=== PATIENT | male | born 1985 | race Caucasian/White ===

== ENCOUNTER 2019-12-01 00:35 | Emergency (ER) | payer OTHER, SELFPAY ==
--- OUTSIDE RECORDS SUMMARY | 2019-12-01 00:38 | XMS REPORT | Clinical Summary ---
:1985 Author Organization [facility] Address [address] [place] [address] Care Team Providers Name Role Phone Asked, No Pcp Primary Care Provider Unavailable Allergies No Known Allergies Medications Medication Sig Dispensed Refills Start Date End Date Status citalopram (CeleXA) Take 1 tablet (20 14 tablet 0 07/18/2019 0 08/17/2019 20 MG tablet mg total) by mouth daily for 30 days. QUEtiapine Take 1 tablet (50 14 tablet 0 07/18/2019 08/17/2019 (SEROqueL) 50 MG mg total) by tablet mouth nightly for 30 days. Active Problems No known active problems Encounters Date Type Specialty Care Team Description 07/14/2019 - Emergency Emergency Medicine Fay Vela (Primary Dx); 07/18/2019 MD Patricia Delusion (HCC) ; Schizophrenia, unspecified type (HCC); Drug abuse (HCC ) after 11/30/2018 Social History Tobacco Use Types Packs/Day Years Used Date Never Assessed Sex Assigned at Date Recorded Not on file Job Start Date Occupation Industry Not on file Not on file Not on file Travel History Travel Start Travel End No recent travel history available. Last Filed Vital Signs Vital Sign Reading Time Taken Comments Blood Pressure 134/98 07/18/2019 4:58 PM CDT Pulse 73 07/18/2019 4:58 PM CDT Temperature 37.4 C (99.3 F) 07/18/2019 4:58 PM CDT Respiratory Rate 16 07/18/2019 4:58 PM CDT Oxygen Saturation 94% 07/18/2019 4:58 PM CDT Inhaled Oxygen Concentration - - Weight - - Height - - Body Mass Index - - Plan of Treatment Not on file Procedures Procedure Name Priority Date/Time Associated Comments Diagnosis ESTIMATED GFR STAT 07/14/2019 1:53 Results fo r this AM [employer] procedure are i n the results section. SALICYLATE LEVEL STAT 07/14/2019 1:53 Results for this AM [employer] procedure are i n the results section. ACETAMINOPHEN LEVEL STAT 07/14/2019 1:53 Resu lts for this AM [employer] procedure are i n the results section. URINE DRUGS OF ABUSE STAT 07/14/2019 1:53 Res ults for this SCREEN [employer] procedure are i n the results section. ALCOHOL LEVEL, BLOOD STAT 07/14/2019 1:53 Res ults for this AM [employer] procedure are i n the results section. URINALYSIS SCREEN AND STAT 07/14/2019 1:53 Re sults for this MICROSCOPY, WITH AM [employer] procedure a re in REFLEX TO CULTURE the result s section. BASIC METABOLIC PANEL STAT 07/14/2019 1:53 Re sults for this [employer] procedure are i n the results section. HC COMPLETE BLD COUNT STAT 07/14/2019 1:53 Re sults for this W/AUTO DIFF [employer] procedure are i n the results section. CREATINE KINASE, TOTAL STAT 07/14/2019 1:53 R esults for this (CPK) [employer] procedure are i n the results section. URINE CULTURE STAT 07/14/2019 1:53 Results fo r this AM [employer] procedure are i n the results section. after 11/30/2018 Results Urinalysis screen and microscopy, with reflex to culture (07/14/2019 1:53 AM [employer]) Specimen site Clean catch [facility] Color, UA Straw YELLOW [facility] Appearance, UA Clear Clear [facility] Specific gravity, 1.004 (A) 1.005 - 1.030 [facility] pH, UA 6.0 5.0 - 8.0 [facility] Protein, UA Negative Negative [facility] Glucose, UA Negative Negative [facility] Ketones, UA Negative Negative [facility] Bilirubin, UA Negative Negative [facility] Blood, UA Negative Negative [facility] Nitrite, UA Negative NEGATIVE [facility] Urobilinogen, UA <2.0 <2.0 E.U./dL [facility] Leukocyte esterase, Negative Negative [facility] WBC, UA <1 0 - 5 /Hpf [facility] RBC, UA 1 0 - 5 /HPF [facility] Bacteria, UA None seen None seen [facility] Yeast, UA None seen None Seen [facility] Yeast with None seen [facility] pseudohyphae, UA [facility] Specimen Urine Performing Organization Address City/[facility] Hospital[facility] Phone Number [facility] DEPARTMENT OF PATHOLOGY [address] [place] [address] [place] [address] [facility] Estimated GFR (07/14/2019 1:53 AM [employer]) Estimated GFR >=90 mL/min/1.73 [facility] Comment: m2 ROY Catergory Units Interpretation HOS PITAL G1 >=90 Normal or high G2 60-89 Mildly decreased G3a 45-59 Mildly to moderately decreas ed G3b 30-44 Moderately to severely decre ased G4 15-29 Severely decreased G5 <15 Kidney failure The eGFR was calculated using the Chronic Kidney Disea se Epidemiology Collaboration (CKD-EPI) equation. Interpretation is based on recommendations of the National Kidney Foundation-Kidney Disease Outcomes Randall lity Initiative (NKF-KDOQI) published in 2014. Specimen Plasma specimen Performing Organization Address City/State/Zipcode Phone Number [facility] DEPARTMENT OF PATHOLOGY [address] [place] [address] [place] [address] [facility] Urine drugs of abuse screen (07/14/2019 1:53 AM [employer]) Amphetamine screen, Negative [facility] urine [facility] Barbiturate screen, Negative [facility] urine [facility] Benzodiazepine Negative [place] [facility] screen, urine [facility] Cocaine screen, Positive (A) [facility] urine [facility] Methadone metabolite Negative [place] [facility] (EDDP), urine [facility] Opiates screen, Negative [facility] urine [facility] Oxycodone screen, Negative [facility] urine [facility] Phencyclidine Negative [place] [facility] screen, urine [facility] Tricyclic screen, Negative [facility] urine [facility] Cannabinoid screen, Negative [facility] urine Comment: ROY Drug screen minimum concentration of detectability [facility] Amphetamines 1000 ng/mL Barbiturates 200 ng/mL Benzodiazepines 300 ng/mL Cocaine 300 ng/mL Methadone 300 ng/mL Opiates 300 ng/mL Oxycodone 300 ng/mL Phencyclidine 25 ng/mL Cannabinoids 50 ng/mL Tricyclics 1000 ng/mL Results are from screening tests and should only be used for medical evaluation. Drug testing for legal purposes requires definitive (or confirmatory) testing methods, which are available upon request. Contact the laboratory if definitive testing is requir ed. Specimen Urine Performing Organization Address City/State/Zipcode Phone Number [facility] DEPARTMENT OF PATHOLOGY [address] [facility] [address] [place], [place] [address] AND GENOMIC MEDICINE [facility] [address] [facility] [address] [place] [address] [facility] CBC with platelet and differential (07/14/2019 1:53 AM [employer]) WBC 12.2 (H) 4.5 - 11.0 [facility] k/uL [facility] RBC 5.26 4.40 - 6.00 [facility] M/uL [facility] HGB 15.8 14.0 - 18.0 [facility] g/dL [facility] HCT 47.5 41.0 - 51.0 % [facility] MCV 90.3 82.0 - 100.0 [facility] MCH 30.0 27.0 - 34.0 [facility] MCHC 33.3 31.0 - 37.0 [facility] g/dL [facility] RDW - SD 43.5 37.0 - 55.0 [facility] MPV 9.1 8.8 - 13.2 [facility] Platelet count 379 150 - 400 [facility] K/uL [facility] Nucleated RBC 0.00 /100 WBC [facility] Neutrophils 60.9 39.0 - 69.0 % [facility] Lymphocytes 31.0 25.0 - 45.0 % [facility] Monocytes 7.0 0.0 - 10.0 % [facility] Eosinophils 0.5 0.0 - 5.0 % [facility] Basophils 0.2 0.0 - 1.0 % [facility] Immature granulocytes 0.4Comment: 0.0 - 1.0 % [facility] "Immature ROY granulocytes" [facility] (promyelocyt es, myelocytes, metamyelocyte s) Specimen Blood Performing Organization Address City/[facility] Hospitalcode Phone Number [facility] DEPARTMENT OF PATHOLOGY [address] [place] [address] Urine culture (07/14/2019 1:53 AM [employer]AGE [employer]) Pathologist [facility] Urine culture SEE COMMENTComment: [facility] Bacteriuria screen [facility] negative. Specimen Performing Organization Address [facility] Hospitalcome Phone Number [facility] DEPARTMENT OF PATHOLOGY [address] [place] [address] Creatine kinase, total (CPK) (07/14/2019 1:53 AM [employer]AGE [employer]) Pathologist [facility] Creatine kinase 158 35 - 200 U/L [facility] Specimen Plasma specimen Performing Organization Address [facility] Hospitalcome Phone Number [facility] DEPARTMENT OF PATHOLOGY [address] [place] [address] Alcohol level, blood (07/14/2019 1:53 AM [employer]AGE [employer]) Pathologist [facility] Alcohol None Detected mg/dl [facility] Alcohol percent None Detected 0.00 - 0.08 [facility] Comment: % ROY Normal None Detected [facility] Legal Intoxication in [place] 80 mg/dL (0.08%) - Whole Blood Toxic Concentration 200 mg/dL (0.2%) Potentially Fatal 350 - 500 mg/dL (0. 35 - 0.5%) Specimen Plasma specimen Performing Organization Address City/[facility] Hospitalcode Phone Number [facility] DEPARTMENT OF PATHOLOGY [address] [place] [address] Acetaminophen level (07/14/2019 1:53 AM [employer]AGE [employer]) Pathologist Sig nature Acetaminophen level <15.0 10.0 - 30.0 [facility] ug/mL [facility] Specimen Plasma specimen Performing Organization Address City/[facility] Hospitalcome Phone Number [facility] DEPARTMENT OF PATHOLOGY [address] [place] [address] Salicylate level (07/14/2019 1:53 AM PACKAGE [employer]ER) Salicylate <0.3 (L) 5.0 - 30.0 [facility] Comment: mg/dL [facility] Therapeutic Range: 5 - 30 mg/dL Specimen Plasma specimen Performing Organization Address [facility] Phone Number [facility] DEPARTMENT OF PATHOLOGY [address] [place] [address] Basic metabolic panel (07/14/2019 1:53 AM [employer]ACKAGE [employer]ER) Pathologist Sig nature Sodium 143 135 - 148 mEq/L [facility] Potassium 3.7 3.5 - 5.0 mEq/L [facility] Chloride 104 99 - 109 mEq/L [facility] CO2 24 24 - 31 mEq/L [facility] Anion gap 15@ANIO 7 - 15 mEq/L [facility] BUN 24 8 - 24 mg/dL [facility] Creatinine 0.80 0.70 - 1.20 mg/dL [facility] Glucose 141 (H) 65 - 99 mg/dL [facility] Calcium 9.9 8.6 - 10.6 mg/dL [facility] Specimen Plasma specimen Performing Organization Address City/[facility] Hospitalcode Phone Number [facility] DEPARTMENT OF PATHOLOGY [address] [place] [address] after 11/30/2018 Advance Directives For more information, please contact: [phone] Type Date Recorded Patient Safety And Health Consultant Explanati on Advance Directives, Living Will 07/14/2019 12:50 AM and Medical Power of Online Media Buyer
--- OUTSIDE RECORDS SUMMARY | 2019-12-01 00:43 | XMS REPORT | Continuity of Care Document ---
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 WWULM0361-50-78 11:01:009 [facility] FCCRN9731-86-23 11:01:000.70[facility]annCHEM PANEL 2019-08-12 11:01:13950Coamzzqa HermannCHEM MJIKM6542-15-38 11:01:004.2[facility]annCHE[facility] MRFOV1208-98-70 11:01:75550Vwivgkwk HermannCHEM SAJLC6053-53-66 11:01:0028[facility]annCHE[facility] WMNFK8377-40-91 11:01:008.2[facility]annCHE[facility] DIYIQ2565-52-34 11:01:008.3[facility]annCHE[facility] MVXPU4341-69-09 11:01:75265 [facility] HuensbsHXZUZODPNJ7305-01-76 11:01:0053.7[facility]annHEMATOLOGY 2019-08-12 11:01:0037.3[facility] ZzpgcslCZNPQTSBCU5706-60-53 11:01:007.0[facility] YwtuoetCTILLROZJE9975-79-08 11:01:001.5[facility] BgmalzySLKUSUHZXS3249-84-90 11:01:000.5[facility] TliodupQTJLYVTQAL7664-06-75 11:01:004.0[facility] [place] AQJNVFFAGW7740-91-22 11:01:002.8[facility] EyldkyhCEIMFTYMXF4325-56-56 11:01:000.5 [facility] CorpxpfCVRTZHDUGV8789-56-77 11:01:000.1[facility]annHEMATOLOGY 2019-08-12 11:01:007.5[facility] KsumwhfBOJKGXXRLX4326-32-79 11:01:004.95[facility] FfkbitrLIGPRVNMEZ6719-78-21 11:01:0015.5[facility] RnvkswsFTBIAHJBEE9292-25-25 11:01:0045.9[facility] VnjfwdxIYJNTZIXXZ5278-14-39 11:01:0092.8[facility] GJGJMSFRSC4911-97-71 11:01:00 Test Item Value Reference Range Interpretation Comments MCH (test code = MCH) 31.2 pg 27.0-31.0 [facility] ZjxlglcVZMBLJTXTZ3006-47-25 11:01:0033.6[facility]annHEMATOLOGY 2019-08-12 11:01:0013.3[facility] GcayitlQUEGKPIVIF3733-31-12 11:01:64545Dzlkovzo GbzzcwdQOFAICAMCB0254-35-24 11:01:007.1[facility]annCHEM DHDXY8537-58-45 11:08:0082[facility]annCHEM OEVSR1984-78-52 11:08:0011[facility]annCHE[facility] SWPPG1124-03-99 11:08:000.50[facility]annCHE[facility] LSILL9158-49-64 11:08:26596 [facility]CHE[facility] IIXNM6170-24-19 11:08:003.5[facility]annCHEM PANEL 2019-08-11 11:08:21463Aukekver HermannCHEM ZGLXT8242-05-31 11:08:0025[facility]annCHE[facility] PPIJR6652-47-48 11:08:008.5[facility]annCHE[facility] VEIAC4387-84-31 11:08:008.3[facility]annCHE[facility] RUJWV4345-46-74 11:08:42182Idjoupgu [place] EREHQMXSLQ4934-35-29 11:08:008.1[facility] HygdbckUNVAXZGRMK2695-63-50 11:08:00 4.77[facility] KpvwessLWDJIFFFAU8268-02-63 11:08:0014.2[facility]annHEMATOLOGY 2019-08-11 11:08:0043.8[facility] OtqzwvgOCSIWUTFEO7015-72-47 11:08:0091.9[facility] CyliohmNMXPOHCGOR2038-90-41 11:08:00 Test Item Value Reference Range Interpretation Comments MCH (test code = MCH) 29.9 pg 27.0-31.0 [facility] KjetjlkICULNJZZWJ5463-64-82 11:08:0032.5[facility]annHEMATOLOGY 2019-08-11 11:08:0013.7[facility] XpnbxziGTJSYQWRRS0986-58-59 11:08:48017Kobtgqlg EcelcxuZEFEJYXHVX4365-69-82 11:08:007.7[facility]annCARDIAC DMGYVAC3558-83-32 05:57:57927Nkxbjsuj HermannCHEM BMIYC5266-52-44 05:57:0092[facility]annCHE[facility] BHBUH8078-86-52 05:57:0011[facility]annCHE[facility] BXVCA1207-07-96 05:57:000.70 [facility]CHE[facility] FRCVB7505-64-45 05:57:47589Weejxdre HermannCHEM PANEL 2019-08-11 05:57:003.6[facility]annCHE[facility] MMPEO0271-21-60 05:57:69256Qsrofxdj HermannCHEM KJXNW2994-69-16 05:57:0028[facility]annCHE[facility] KSIHW6642-98-14 05:57:008.7[facility]annCHE[facility] EGOLL3200-00-37 05:57:008.6[facility]annCHE[facility] CAZRR6622-96-20 05:57:64023Zjiobwsx HermannDRUG QGZHPI5242-32-84 05:57:00 Positive *ABN*(08/11/19 12:57 AM)[facility]annDR[facility] SNHNMO3254-15-21 05:57:00 Negative *NA*(08/11/19 12:57 AM)[facility]annDR[facility] VCTRKP1752-85-41 05:57:00 Negative *NA*(08/11/19 12:57 AM)[facility]annDR[facility] VZKZTQ1585-65-19 05:57:00 Positive *ABN*(08/11/19 12:57 AM)[facility]annDR[facility] MULRIW7101-84-57 05:57:00 Negative *NA*(08/11/19 12:57 AM)[facility]annDR[facility] OPDPMF4276-09-60 05:57:00 Negative *NA*(08/11/19 12:57 AM)[facility]annDR[facility] KLJTVP8354-26-53 05:57:00 Negative *NA*(08/11/19 12:57 AM)[facility]annDR[facility] ODROLZ2784-57-36 05:57:00See Note (08/11/19 12:57 AM)[facility] TmlwzyfTCHGZKRSCU9368-50-75 05:57:0010.3[facility] DwkmiepIACBPDNCJJ1884-65-55 05:57:004.95[facility] SopebcfMOETDXHBTM3701-46-88 05:57:0015.3[facility] BnnnpxnPYHZRLMUJA3919-24-99 05:57:0046.1[facility] INFGXNYHLA6241-39-39 05:57:0093.1[facility] TyfqxheSKRAXUPZMZ3770-18-47 05:57:00 Test Item Value Reference Range Interpretation Comments MCH (test code = MCH) 30.8 pg 27.0-31.0 [facility] MqghuolHDNHUKSSAL1465-40-29 05:57:0033.1[facility]annHEMATOLOGY 2019-08-11 05:57:0013.0[facility] TgpcfaeZRCKSAAOAH6234-07-17 05:57:51005Onrhcdjy OhkeceqQCZKJTXVSO5895-53-39 05:57:007.5[facility] UiootiwPPMXRTNDEQ8150-84-10 05:57:0066.6[facility] HblmelyZCMIDJSWEF2791-41-78 05:57:0028.1[facility] CYTNHKNETZ5734-53-85 05:57:004.2[facility] UsvakkwXTBTPWTSAP7859-90-72 05:57:000.4 [facility] XpjgttoJXQRAUMKOE8522-37-16 05:57:000.7[facility]annHEMATOLOGY 2019-08-11 05:57:006.9[facility] ArhoadiDLTTZQMMNJ9765-35-24 05:57:002.9[facility] WomqtqlQJHJCZUQBT9798-23-66 05:57:000.4[facility] FlepaqvLPWKDEYFLT3891-44-11 05:57:000.0[facility] JocehnkWHXUMHVUXE4828-31-69 05:57:000.1[facility] OYKSWJAMSH9950-05-23 05:57:00<2 (08/11/19 12:57 AM)[facility] HermannTOXICOLOGY 2019-08-11 05:57:00<3[facility] IiuxdcbBBGPDLCXNG8245-48-88 05:57:00<0.[address] [facility] FdwljohXDMDLVIZGC3425-28-35 05:57:00<1.7[facility] HermannUrine drugs of abuse jlkxbh5055-90-43 02:38:42 Test Item Value Reference Interpretation Comments Range Amphetamine screen, Negative urine (test code = 3349-8) Barbiturate screen, Negative urine (test code = 3377-9) Benzodiazepine Negative screen, urine (test code = 3390-2) Cocaine screen, Positive A urine (test code = 3397-7) Methadone Negative metabolite (EDDP), urine (test code = 41591-7) Opiates screen, Negative urine (test code = 3879-4) Oxycodone screen, Negative urine (test code = 10070-2) Phencyclidine Negative screen, urine (test code = 3936-2) Tricyclic screen, Negative urine (test code = 79200-3) Cannabinoid screen, Negative Drug scr een minimum urine (test code = concentra tion of 3427-2) detectabilityAm phetamines 1000 ng/mLBarbiturat es 200 ng/mLBe nzodiazepines 300 ng/mLCocaine 300 ng/mLMethadone 300 ng/mLOp iates 300 ng/mLOxycodone 300 ng/mLPh encyclidine 25 ng/mLCannabinoi ds 50 ng/mLTr icyclics 1000 ng/mLResults are from screen ing tests and should only be used for medical evaluat ion. Drug testing for leg al purposes requires defini tive (or confirmatory) t esting methods, which are available upon request. C ontact the laboratory if d efinitive testing is requ ired. Lab Interpretation Abnormal (test code = 04612-1) [place] MethodistCreatine kinase, total (CPK)2019-07-14 02:37:17 Test Item Value Reference Range Interpretation Comments Creatine kinase (test code = 2157-6) 158 U/L 35-200 [place] [facility]Basic metabolic pizla2361-91-40 02:36:50 Test Item Value Reference Range Interpretation Comments Sodium (test code = 2951-2) 143 135- 148 mEq/L Potassium (test code = 2823-3) 3.7 3.5- 5.0 mEq/L Chloride (test code = 2075-0) 104 99- 109 mEq/L CO2 (test code = 2027-9) 24 24- 31 mEq/L Anion gap (test code = 11019-7) 15@ANIO 7- 15 mEq/L BUN (test code = 3094-0) 24 mg/dL 8-24 Creatinine (test code = 2160-0) 0.80 mg/dL 0.7-1.2 Glucose (test code = 2345-7) 141 mg/dL 65-99 H Calcium (test code = 88579-8) 9.9 mg/dL 8.6-10.6 Lab Interpretation (test code = Abnormal 50009-3) [place] MethodistSalicylate xscaa6050-87-77 02:36:49 Test Item Value Reference Range Interpretation Comments Salicylate (test code = <0.3 5-30 L Ther apeutic Range: 5 4024-6) - 30 mg/dL Lab Interpretation (test Abnormal code = 90449-9) [place] MethodistAcetaminophen pceuz2271-68-77 02:36:49 Test Item Value Reference Range Interpretation Comments Acetaminophen level (test code = <15.0 10-30 3298-7) [place] MethodistAlcohol level, sfnle7304-48-82 02:36:49 Test Item Value Reference Range Interpretation Comments Alcohol percent None Detected 0-0.08 Normal (test code = None Detec tedLegal 5643-2) Intoxication in [place] 80 mg/dL (0.08% ) - Whole BloodToxi c Concentration 200 mg/dL (0.2%)Potential ly Fatal 350 - 500 mg/dL (0.35 - 0 .5%) [place] MethodistEstimated [id number] 02:36:49 Test Item Value Reference Range Interpretation Comments Estimated GFR (test >=90 mL/min/1.73 m2 [facility] code = 5488) InterpretationG 1 >=90 Normal or highG2 60-89 Mildly lbudexbhkR9k 45-59 Mildly to mode rately vuqsoqbyxD2q 30-44 Moderately to severely decreasedG4 15-29 Severely decre asedG5 <15 Kidn ey failureThe eGFR was calculated dallin pierre the Chronic Kidney Disease Epidemiology Co llaboration (CKD-EPI) equat ion. Interpretation is based on recommendations of the National Kidney Foundation-Kidn ey Disease Outcomes Qualit y Initiative (NKF-KDOQI) pub lished in 2013. [place] MethodistUrinalysis screen and microscopy, with reflex to culture 2019-07-14 02:30:22 Test Item Value Reference Range Interpretation Comments Specimen site (test code = Clean catch 5370074) Color, UA (test code = 5778-6) Straw YELLOW Appearance, UA (test code = Clear Clear 5767-9) Specific gravity, UA (test code = 1.004 1.005-1.030 A 5811-5) pH, UA (test code = 5803-2) 6.0 5.0-8.0 Protein, UA (test code = 79713-9) Negative Negative Glucose, UA (test code = 47879-1) Negative Negative Ketones, UA (test code = 2514-8) Negative Negative Bilirubin, UA (test code = Negative Negative 5770-3) Blood, UA (test code = 5794-3) Negative Negative Nitrite, UA (test code = 5802-4) Negative NEGATIVE Urobilinogen, UA (test code = <2.0 <2.0 E.U./dL 41695-6) Leukocyte esterase, UA (test code Negative Negative = 5799-2) WBC, UA (test code = 5821-4) <1 0- 5 /Hpf RBC, UA (test code = 98762-4) 1 0- 5 /HPF Bacteria, UA (test code = None seen None seen 94400-5) Yeast, UA (test code = 08680-4) None seen None Seen Yeast with pseudohyphae, UA (test None seen code = 72432-7) Lab Interpretation (test code = Abnormal 57411-2) [facility] HaddadUrine lprkmsh7427-17-20 02:22:13 Test Item Value Reference Range Interpretation Comments Urine culture (test SEE COMMENT Bacteriu alexandra screen code = 7689406) negative. [place] MethodistCBC with platelet and jcuxindcorqn3693-46-35 02:11:40 Test Item Value Reference Range Interpretation Comments WBC (test code = 96874-4) 12.2 4.5- 11.0 k/uL H RBC (test code = 21348-2) 5.26 4.40- 6.00 M/uL HGB (test code = 718-7) 15.8 g/dL 14-18 HCT (test code = 4544-3) 47.5 % 41-51 MCV (test code = 787-2) 90.3 fL 82-100 MCH (test code = 785-6) 30.0 pg 27-34 MCHC (test code = 786-4) 33.3 g/dL 31-37 RDW - SD (test code = 43.5 fL 37-55 49706-9) MPV (test code = 33550-8) 9.1 fL 8.8-13.2 Platelet count (test code 379 K/uL 150-400 = 87753-5) Nucleated RBC (test code 0.00 /100 WBC = 81602-6) Neutrophils (test code = 60.9 % 39-69 87166-9) Lymphocytes (test code = 31.0 % 25-45 42874-7) Monocytes (test code = 7.0 % 0-10 61298-0) Eosinophils (test code = 0.5 % 0-5 47062-5) Basophils (test code = 0.2 % 0-1 10623-6) Immature granulocytes 0.4 % 0-1 "Immat ure (test code = 10398-6) granul ocytes" (promyelocytes, myelocytes, metamyelocytes) Lab Interpretation (test Abnormal code = 70065-1) [place] MethodistUrinalysis Fqdgoquegvm0712-91-93 17:03:09 Test Item Value Reference Range Interpretation Comments UA WBC (test code = UA WBC) 0-5 0-5 UA RBC (test code = UA RBC) 0-5 0-5 UA Bacteria (test code = UA Bacteria) Few A UA Squam Epithelial (test code = UA 0-5 Squam Epithelial) UA Mucous (test code = UA Mucous) Many A UA Ca Ox Crystal (test code = UA Ca Ox Many A Crystal) Urinalysis with Microscopic if lvmnzewkw4870-54-60 16:23:24 Test Item Value Reference Range Interpretation Comments UA Color (test code = UA YELLO Yellow Color) UA Appear (test code = CLEAR Clear UA Appear) UA pH (test code = UA 5 N pH) UA Spec Grav (test code 1.032 1.001-1.035 = UA Spec Grav) UA Glucose (test code = NEG Negative UA Glucose) UA Ketones (test code = 5 mg/dL Negative UA Ketones) UA Blood (test code = UA NEG Negative Blood) UA Protein (test code = 25 mg/dL Negative A UA Protein) UA Bili (test code = UA 1 mg/dL Negative A Bili) UA Urobilinogen (test .2 mg/dL >0.2 code = UA Urobilinogen) UA Nitrite (test code = NEG Negative UA Nitrite) UA Leuk Est (test code = NEG Negative UA Leuk Est) UA Micro Ind? (test code Indicated Not Indicated A Re sult created by = UA Micro Ind?) rule GL_SJM_UA_MICRO _IND Urine Drug [id number] 16:03:57 Test Item Value Reference Range Interpretation Comments Amphetamine Screen Ur POSITIVE Negative A (test code = Amphetamine Screen Ur) Barbiturate Screen Ur Negative Negative (test code = Barbiturate Screen Ur) Benzodiazepines Ur (test Negative Negative code = Benzodiazepines Ur) Cocaine Screen Ur (test Negative Negative code = Cocaine Screen Ur) U Methadone Scr (test Negative Negative code = U Methadone Scr) Opiate Screen Ur (test Negative Negative code = Opiate Screen Ur) U PCP Scrn (test code = Negative Negative U PCP Scrn) Cannabinoid Screen Ur POSITIVE Negative A (test code = Cannabinoid Screen Ur) U TCA (test code = U Negative Negative The res ults of all TCA) drug screen beth ts are only preliminar y. Clinical consideration a nd professional ju dgment should be appli ed to any drug of abu se test result, particularly wh en preliminary pos itive results are obt ained. Please order a separate confir matory test if desired . Comprehensive Metabolic Fbumb0485-74-03 15:45:32 Test Item Value Reference Range Interpretation Comments Sodium Level (test code = Sodium 143.0 mmol/L 135.0-145.0 Level) Potassium Level (test code = 3.7 mmol/L 3.5-5.1 Potassium Level) Chloride Level (test code = 103 mmol/L 98-105 Chloride Level) CO2 (test code = CO2) 26 mmol/L 22-29 Anion Gap (test code = Anion 14 mmol/L 7-16 Gap) BUN (test code = BUN) 17.20 mg/dL 6.00-20.00 Creatinine Level (test code = 0.60 mg/dL 0.70-1.20 L Creatinine Level) BUN/Creat Ratio (test code = 29 N BUN/Creat Ratio) Glucose Level (test code = 123 mg/dL 70-115 H Glucose Level) Calcium Level (test code = 9.4 mg/dL 8.3-10.5 Calcium Level) Alk Phos (test code = Alk Phos) 110 U/L 40-129 Bilirubin Total (test code = 0.4 mg/dL 0.1-0.9 Bilirubin Total) Albumin Level (test code = 4.4 g/dL 3.5-5.2 Albumin Level) Protein Total (test code = 7.1 g/dL 6.4-8.3 Protein Total) ALT (test code = ALT) 32 U/L 1-41 AST (test code = AST) 34 U/L 1-40 Globulin (test code = Globulin) 2.7 g/dL 2.9-3.1 L A/G Ratio (test code = A/G 1.6 ratio N Ratio) Comprehensive Metabolic [id number] 15:45:32 Test Item Value Reference Range Interpretation Comments Sodium Level (test 143.0 mmol/L 135.0-145.0 code = Sodium Level) Potassium Level 3.7 mmol/L 3.5-5.1 (test code = Potassium Level) Chloride Level (test 103 mmol/L 98-105 code = Chloride Level) CO2 (test code = 26 mmol/L 22-29 CO2) Anion Gap (test code 14 mmol/L 7-16 = Anion Gap) BUN (test code = 17.20 mg/dL 6.00-20.00 BUN) Creatinine Level 0.60 mg/dL 0.70-1.20 L (test code = Creatinine Level) BUN/Creat Ratio 29 N (test code = BUN/Creat Ratio) Glucose Level (test 123 mg/dL 70-115 H code = Glucose Level) Calcium Level (test 9.4 mg/dL 8.3-10.5 code = Calcium Level) Alk Phos (test code 110 U/L 40-129 = Alk Phos) Bilirubin Total 0.4 mg/dL 0.1-0.9 (test code = Bilirubin Total) Albumin Level (test 4.4 g/dL 3.5-5.2 code = Albumin Level) Protein Total (test 7.1 g/dL 6.4-8.3 code = Protein Total) ALT (test code = 32 U/L 1-41 ALT) AST (test code = 34 U/L 1-40 AST) Globulin (test code 2.7 g/dL 2.9-3.1 L = Globulin) A/G Ratio (test code 1.6 ratio N = A/G Ratio) eGFR AA (test code = >60 N eGFR (e stimated eGFR AA) mL/min/1.73 m2 Glomerular Filtration Rate ) is an estimated va lue, calculated from the patient's serum creatinine usin g the MDRD equation. It is NOT the patient 's actual GFR. The eGFR provides a more clinically usef ul measure of kidn ey disease than se rum creatinine alone.This calculation solitario es sex and race in to account, if the information is provided. If th e race is not provided, and t he patient is -Veronica n, multiply by 1.2 12. If sex is not provided, and t he patient is fema le, multiply by 0.7 42. Results for pat ients <18 years of ag e have not been validated by th e MDRD study and should be interpreted wit h caution. eGFR R esult Interpretation: eGFR > or = 60 is in the Normal RangeeGF R < 60 may mean kid nyla diseaseeGFR < 1 5 may mean kidney failure Rang es recommended by the National Kidney Foundation, http://nkdep.ni h.gov Alcohol [id number] 15:45:32 Test Item Value Reference Range Interpretation Comments Ethanol Level (test <0.00 g/dL 0.00-0.01 Intoxica anmol 0.080 g/dL code = Ethanol or more Level) Ethanol Inst (test <0 N code = Ethanol Inst) Comprehensive Metabolic [id number] 15:45:32 Test Item Value Reference Range Interpretation Comments Sodium Level (test 143.0 mmol/L 135.0-145.0 code = Sodium Level) Potassium Level 3.7 mmol/L 3.5-5.1 (test code = Potassium Level) Chloride Level (test 103 mmol/L 98-105 code = Chloride Level) CO2 (test code = 26 mmol/L 22-29 CO2) Anion Gap (test code 14 mmol/L 7-16 = Anion Gap) BUN (test code = 17.20 mg/dL 6.00-20.00 BUN) Creatinine Level 0.60 mg/dL 0.70-1.20 L (test code = Creatinine Level) BUN/Creat Ratio 29 N (test code = BUN/Creat Ratio) Glucose Level (test 123 mg/dL 70-115 H code = Glucose Level) Calcium Level (test 9.4 mg/dL 8.3-10.5 code = Calcium Level) Alk Phos (test code 110 U/L 40-129 = Alk Phos) Bilirubin Total 0.4 mg/dL 0.1-0.9 (test code = Bilirubin Total) Albumin Level (test 4.4 g/dL 3.5-5.2 code = Albumin Level) Protein Total (test 7.1 g/dL 6.4-8.3 code = Protein Total) ALT (test code = 32 U/L 1-41 ALT) AST (test code = 34 U/L 1-40 AST) Globulin (test code 2.7 g/dL 2.9-3.1 L = Globulin) A/G Ratio (test code 1.6 ratio N = A/G Ratio) eGFR AA (test code = >60 N eGFR (e stimated eGFR AA) mL/min/1.73 m2 Glomerular Filtration Rate ) is an estimated va lue, calculated from the patient's serum creatinine usin g the MDRD equation. It is NOT the patient 's actual GFR. The eGFR provides a more clinically usef ul measure of kidn ey disease than se rum creatinine alone.This calculation solitario es sex and race in to account, if the information is provided. If th e race is not provided, and t he patient is -Veronica n, multiply by 1.2 12. If sex is not provided, and t he patient is fema le, multiply by 0.7 42. Results for pat ients <18 years of ag e have not been validated by th e MDRD study and should be interpreted wit h caution. eGFR R esult Interpretation: eGFR > or = 60 is in the Normal RangeeGF R < 60 may mean kid nyla diseaseeGFR < 1 5 may mean kidney failure Rang es recommended by the National Kidney Foundation, http://nkdep.ni h.gov eGFR Non-AA (test >60.00 N eGFR (ronda mated code = eGFR Non-AA) mL/min/1.73 m2 Glomer ular Filtration Rate ) is an estimated va lue, calculated from the patient's serum creatinine usin g the MDRD equation. It is NOT the patient 's actual GFR. The eGFR provides a more clinically usef ul measure of kidn ey disease than se rum creatinine alone.This calculation solitario es sex and race in to account, if the information is provided. If th e race is not provided, and t he patient is -Veronica n, multiply by 1.2 12. If sex is not provided, and t he patient is fema le, multiply by 0.7 42. Results for pat ients <18 years of ag e have not been validated by th e MDRD study and should be interpreted wit h caution. eGFR R esult Interpretation: eGFR > or = 60 is in the Normal RangeeGF R < 60 may mean kid nyla diseaseeGFR < 1 5 may mean kidney failure Rang es recommended by the National Kidney Foundation, http://nkdep.ni h.gov Complete Blood Count with Yziskyabxbkj7824-05-23 15:11:36 Test Item Value Reference Range Interpretation Comments WBC (test code = WBC) 10.0 x10 4.4-10.5 RBC (test code = RBC) 5.24 x10 4.10-5.70 Hgb (test code = Hgb) 16.0 g/dL 13.4-17.4 Hct (test code = Hct) 46.7 % 38.7-52.0 MCV (test code = MCV) 89.10 fL 80.00-100.00 MCHC (test code = 34.30 g/dL 32.00-37.50 MCHC) RDW CV (test code = 12.7 % 11.5-14.5 RDW CV) MCH (test code = MCH) 30.5 pg 27.0-32.5 Platelets (test code = 366.0 x10 140.0-440.0 Platelets) MPV (test code = MPV) 9.4 fL N Slide Review (test Auto Auto Result cr eated by code = Slide Review) GL_SJM_ SLIDE_REV_AUTO nRBC (test code = 0 N nRBC) NRBC Abs (test code = 0.00 x10 N NRBC Abs) IPF (test code = IPF) 0 % N Automated Awcqezbqypcr4961-03-23 15:11:36 Test Item Value Reference Range Interpretation Comments Neutro Auto (test code = Neutro 69.6 % 36.0-70.0 Auto) Lymph Auto (test code = Lymph Auto) 21.8 % 12.0-44.0 Benson Auto (test code = Benson Auto) 6.6 % 0.0-11.0 Eos, Auto (test code = Eos, Auto) 1.5 % 0.0-7.0 Basophil Auto (test code = Basophil 0.3 % 0.0-2.0 Auto) Neutro Absolute (test code = Neutro 7.0 x10 1.6-7.4 Absolute) Lymph Absolute (test code = Lymph 2.19 x10 .50-4.60 Absolute) Benson Absolute (test code = Benson .66 x10 .00-1.20 Absolute) Eos Absolute (test code = Eos 0.15 x10 0.00-0.74 Absolute) Baso Absolute (test code = Baso 0.03 x10 0.00-0.21 Absolute) IG [id number] 15:11:36 Test Item Value Reference Range Interpretation Comments IG (test code = IG) 0.2 % 0.0-5.0 IG Abs (test code = IG Abs) 0 x10 N URINE AND [id number] 22:15:00None Seen (11/04/15 5:15 PM)[facility] URINE AND [id number] 22:15:00Positive *ABN*(11/04/15 5:15 PM)[facility] [id number] 22:15:00Negative (11/04/15 5:15 PM)[facility] [id number] 22:15:00None Seen (11/04/15 5:15 PM)[facility] [id number] 22:15:00Negative (11/04/15 5:15 PM)[facility] [id number] 22:15:000.2[facility] STOOL 2015-11-04 22:15:00Negative *NA*(11/04/15 5:15 PM)[facility] 2015-11-04 22:15:00Negative *NA*(11/04/15 5:15 PM)[facility] 2015-11-04 22:15:00Negative (11/04/15 5:15 PM)[facility] 2015-11-04 22:15:00Negative (11/04/15 5:15 PM)[facility] 2015-11-04 22:15:00 Test Item Value Reference Range Interpretation Comments UA pH (test code = UA pH) 6.0 1 5.0-8.0 [facility] [id number] 22:15:00Clear (11/04/15 5:15 PM) [facility] [id number] 22:15:00 Test Item Value Reference Range Interpretation Comments UA Spec Grav (test code = UA Spec 1.010 1 Grav) [facility] [id number] 22:15:00Yellow *NA*(11/04/15 5:15 PM) [facility] [id number] 13:19:1014[facility] PANEL 2015-11-03 13:19:1084[facility] [id number] 13:19:100.8[facility] [id number] 13:19:104.2[facility] [id number] 13:19:107.4[facility] [id number] 13:19:1023[facility] [id number] 13:19:1095[facility] [id number] 13:19:1012 [facility] [id number] 13:19:101.05[facility] PANEL 2015-11-03 13:19:37024Pvkbfmty HermannCHEM [id number] 13:19:103.6[facility] [id number] 13:19:109.0[facility] [id number] 13:19:07635Vgqifvpi HermannCHEM [id number] 13:19:1030[facility] [id number] 13:19:1091[facility] [id number] 13:19:101.3 [facility] [id number] 13:19:103.2[facility] PANEL 2015-11-03 13:19:1012.6[facility] [id number] 13:19:1011[facility] AakyycpVVAQDRNHQI3498-14-04 13:19:1089.9[facility] JufyzdwDYIRHXOZNV8951-99-04 13:19:1014.9[facility] SjqnhjwVQWFWGSELW6073-08-96 13:19:1043.7[facility] UHSVPMEPFY9486-17-13 13:19:108.9[facility] VzdchsjLXNVVEQYNZ6180-84-90 13:19:10 4.86[facility] EclqrzaLHEYDNIDIK3749-04-75 13:19:45694Jtdiqjyj HermannHEMATOLOGY 2015-11-03 13:19:107.8[facility] XtvasflLCAKZREZYN6203-03-28 13:19:1034.1[facility] JxbezktXYVBRTFYBU6158-72-48 13:19:1013.3[facility] UbkmtujGKFGPLGOPY7415-59-15 13:19:10 Test Item Value Reference Range Interpretation Comments MCH (test code = MCH) 30.7 pg 27.0-31.[address] [facility] LsgtaprYRARVDRYFQ5594-58-82 13:19:102.2[facility] HermannHEMATOLOGY 2015-11-03 13:19:100.8[facility] XlhwlewRJFQGFKBIU9057-83-28 13:19:100.1[facility] UaiukzuVSORISVBML5646-27-44 13:19:105.9[facility] OnnozlhUGKUGGRUZD9570-42-82 13:19:100.6[facility] TbllfyzLNMGXZVSNP7684-62-12 13:19:100.2[facility] DRQWWIVDUQ7953-89-24 13:19:109.1[facility] AmvgtirANITIYSPXS3756-04-95 13:19:10 24.2[facility] ChoqvpxUKOJYFKTDB9959-17-97 13:19:1065.9[facility] HermannTOXICOLOGY 2015-11-03 13:19:102.3[facility] OngcyzgBAOOOCBJOX7152-49-19 13:19:10<2 (11/03/15 8:19 AM)[facility]annDRUG CZULQC3063-82-43 12:57:00Negative *NA*(11/03/15 7:57 AM)[facility] OBTRFF6806-73-07 12:57:00Negative *NA*(11/03/15 7:57 AM)[facility] DKSIBV3266-43-89 12:57:00See Note (11/03/15 7:57 AM)[facility]ann[facility] CXYXKQ8779-49-56 12:57:00Negative *NA*(11/03/15 7:57 AM)[facility]ann[facility] FAOBIN9193-35-66 12:57:00Negative *NA*(11/03/15 7:57 AM)[facility]ann[facility] VYIKAR8341-44-88 12:57:00Positive *ABN*(11/03/15 7:57 AM)[facility] AUHWLF5974-84-76 12:57:00Negative *NA*(11/03/15 7:57 AM)[facility]annDR[facility] PAOHLU4908-53-44 12:57:00Negative *NA*(11/03/15 7:57 AM)[facility] HermannVIRAL - TEWZWBAC5534-35-66 04:27:00Negative (08/04/15 11:27 PM)[facility] HermannVIRAL - ZLQLWYIJ2799-83-11 04:27:00Negative (08/04/15 11:27 PM)[facility]annDR[facility] BLKGST1280-84-85 11:43:00Negative *NA*(02/14/15 6:43 AM)[facility]ann[facility] NVTCYI3993-99-97 11:43:00See Note (02/14/15 6:43 AM)[facility]ann[facility] UOUCBC6781-05-26 11:43:00Negative *NA*(02/14/15 6:43 AM)[facility]ann[facility] DNZMPR1536-43-22 11:43:00Negative *NA*(02/14/15 6:43 AM)[facility]annDR[facility] JTJLWB8655-19-46 11:43:00Negative *NA*(02/14/15 6:43 AM)[facility]ann[facility] NCAWBI5775-71-28 11:43:00Negative *NA*(02/14/15 6:43 AM)[facility]ann[facility] WKENEK7213-69-09 11:43:00Negative *NA*(02/14/15 6:43 AM)[facility]annDR[facility] YDVLYW9314-52-99 11:43:00Positive *ABN*(02/14/15 6:43 AM)[facility] SwcqxkuBGGASSROUALF3046-99-09 11:43:0010.2 [facility] FelrneiFCMZLRCSRUSL4781-17-32 11:43:66582Iyteoikl HermannELECTROLYTES 2015-02-14 11:43:00455Ctwvgsld MovstpyNLESRRVVMRUL4057-63-34 11:43:009[facility] SitwasmIVVIOGLTICIW6657-55-63 11:43:0030[facility] IcmkgdiSJTFOYGIIGHY1450-84-25 11:43:009.5[facility] IdwjqxrSMCYSBAIGALK4701-17-10 11:43:18777Gpvkofky Anatoly QRCKYPTSNBJR6129-68-73 11:43:004.2[facility] MhhoeliGWEEMGNRZMDD5147-41-28 11:43:000.9[facility] CvnkaouJYYYIJOCGBVC2726-96-47 11:43:09234Umnionfu Anatoly BMRXUSTLLZ7993-67-88 11:43:004.0[facility] LfsbrctRVWTDUJDJH7039-37-06 11:43:000.7 [facility] KvxkrnyTGRYTPFPUE6961-15-18 11:43:003.1[facility] HermannHEMATOLOGY 2015-02-14 11:43:000.3[facility] SqqhoreJJCTOPSMKB7363-19-90 11:43:0048.5[facility] OqltlltDERFVOLQYK5142-00-23 11:43:0038.4[facility] IwrlkxoZFSDDYULVA9044-26-58 11:43:003.6[facility] TpcodcvRUAYYYJKBS5588-28-99 11:43:000.4[facility] OYQQCRNBHX4305-01-19 11:43:009.1[facility] HpmzwdvUZEXSKYSGL1787-10-19 11:43:00 45.8[facility] DmszntjQTMDISDDTW1320-57-53 11:43:0093.1[facility] HermannHEMATOLOGY 2015-02-14 11:43:71426Qhgaakqw GvqoxdmXZGFWKXJZM4343-70-52 11:43:007.7[facility] SzovqryMTHWDWUKDC4933-40-26 11:43:008.1[facility] BhhaousUYETPVPMYN6903-09-92 11:43:0013.1[facility] PlioblzGOOZFLFPLE5139-69-48 11:43:004.92[facility] [place] UXIVBVQLQK5881-98-64 11:43:0015.5[facility] JmiukfaNPECFGUFVN1194-21-97 11:43:00 Test Item Value Reference Range Interpretation Comments MCH (test code = MCH) 31.4 pg 27.0-31.0 [facility] PqdnwapHLOKMQGYLR8634-91-12 11:43:0033.8[facility] HermannIMMUNOLOGY 2015-02-14 11:43:00Negative (02/14/15 6:43 AM)[facility] HermannTOXICOLOGY 2015-02-14 11:43:00<2 (02/14/15 6:43 AM)[facility] YhjnbmtRXZUJMIRTY6655-22-73 11:43:00<0.003[facility] PgjsghxUNITKJNRMA1704-10-94 11:43:00<3[facility] HermannURINE AND EREJY5270-38-46 11:43:00Negative *NA*(02/14/15 6:43 AM)[facility]ann[facility] AND WWLJM9730-09-85 11:43:00Negative (02/14/15 6:43 AM)[facility]annUR[facility] AND GHCZR5716-44-91 11:43:00Negative (02/14/15 6:43 AM)[facility]ann[facility] AND DPPNX9282-30-49 11:43:00Negative (02/14/15 6:43 AM)[facility]ann[facility] AND DNEBM2860-47-00 11:43:000.2[facility]annURINE AND STOOL 2015-02-14 11:43:00Yellow *NA*(02/14/15 6:43 AM)[facility]ann[facility] AND STOOL 2015-02-14 11:43:00Clear (02/14/15 6:43 AM)[facility]annUR[facility] AND STOOL 2015-02-14 11:43:00 Test Item Value Reference Range Interpretation Comments UA Spec Grav (test code = UA Spec 1.015 1 Grav) [facility]ann[facility] AND HWIGS7124-48-45 11:43:00 Test Item Value Reference Range Interpretation Comments UA pH (test code = UA pH) 6.5 1 5.0-8.0 [facility]ann[facility] AND SJSGT8769-43-97 11:43:00Not Indicated *NA*(02/14/15 6:43 AM)[facility]
[2019-12-01] MEDS ORDERED: ZIPRASIDONE MESYLA 20 MG/VIAL IM ONE (00:59)
[2019-12-01] MEDS ORDERED: WATER FOR INJ,STERILE 10 ML ONE (01:00)
[2019-12-01] MEDS ORDERED: NA CHLORIDE 0.9% 2,000 ML ONE (01:00)
[2019-12-01 01:31] LABS: Urine Blood NEGATIVE (NEG); Urine Glucose NEGATIVE (NEG); Urine Protein NEGATIVE (NEG)
[2019-12-01 01:40] LABS: Basophils % 0.2 % (0-1.3); Hematocrit 43.2 % (39.6-49.0); Lymphocytes % 12.8 % (15.3-44.8); MPV 7.6 fL (7.6-11.3); RBC Red Blood Cell Count 4.75 M/uL (4.33-5.43)
[2019-12-01 01:42] LABS: Protime INR 1.08
[2019-12-01 01:45] LABS: Barbiturates NEGATIVE (NEGATIVE); Benzodiazepines NEGATIVE (NEGATIVE); Cocaine NEGATIVE (NEGATIVE); METHAMPHETAM POSITIVE (NEGATIVE); Methadone NEGATIVE (NEGATIVE); Opiates NEGATIVE (NEGATIVE); Phencyclidine NEGATIVE (NEGATIVE); THC Cannibis POSITIVE (NEGATIVE)
[2019-12-01 02:29] LABS: ALT/SGPT 37 U/L (12-78); AST/SGOT 59 U/L (15-37); Albumin 4.4 g/dL (3.4-5.0); Alkaline Phosphatase 89 U/L (45-117); BUN Blood Urea Nitrogen 11 mg/dL (7-18); Bicarbonate 25 mmol/L (21-32); Bilirubin Direct 0.2 mg/dL (0-0.2); Bilirubin Total 0.8 mg/dL (0.2-1.0); Glucose Level 97 mg/dL (74-106); Potassium 3.5 mmol/L (3.5-5.1); Protein, Total 7.8 g/dL (6.4-8.2); Sodium Level 142 mmol/L (136-145)
[2019-12-01 05:28] LABS: Absolute Lymphocytes (CBC) 2.5 K/uL (0.7-4.9); Basophils % 0.7 % (0-1.3); Hematocrit 40.5 % (39.6-49.0); Lymphocytes % 19.7 % (15.3-44.8); MPV 7.3 fL (7.6-11.3); RBC Red Blood Cell Count 4.42 M/uL (4.33-5.43)
--- NOTE | 2019-12-01 06:35 | ER ---
Nurse's Notes [facility] Name: Nestor Abbtot Age: 34 yrs Sex: Male : 1985 Arrival Date: 12/01/2019 Time: 00:38 Bed 20 Private MD: Diagnosis: Altered mental status. Substances abuse Presentation: 11/30 00:38 Chief complaint: EMS states: BIBA. PT HOMELESS UNDER THE INFLUENCE OF AMPHETAMINE. mt2 UNABLE TO ANSWER QUESTIONS APPROPRIATELY. Coronavirus screen: Patient denies a cough. Patient denies shortness of breath or difficulty breathing. Patient denies measured and/or subjective temperature greater than 100.4F prior to today's visit. Patient denies travel on a cruise ship or to a country the [facility] currently lists as an affected area. Patient denies contact with known and/or suspected case of COVID-19. Ebola Screen: Unable to complete the Ebola screening because: The patient is disoriented. Initial Sepsis Screen: Does the patient meet any 2 criteria? No. Patient's initial sepsis screen is negative. Does the patient have a suspected source of infection? No. Patient's initial sepsis screen is negative. Risk Assessment: Do you want to hurt yourself or someone else? Unable to obtain. Onset of symptoms was November 30, 2019. 00:38 Method Of Arrival: EMS: [facility] mt2 00:38 Acuity: REN 2 mt2 00:42 Chief complaint: EMS states: Called by PD for patient at gas station under the lp1 influence, not acting appropriately, not making coherent statements, crying; Admitted to PD to smoking methamphetamines. Triage Assessment: 00:41 General: Appears uncomfortable, Behavior is agitated. Pain: Denies pain. Neuro: Level mt2 of Consciousness is confused. Cardiovascular: No deficits noted. Respiratory: No deficits noted. GI: No deficits noted. : No deficits noted. Derm: No deficits noted. Musculoskeletal: No deficits noted. Historical: - Allergies: 00:41 No Known Allergies; mt2 - Immunization history:: Adult Immunizations unknown. - Social history:: Smoking status: unknown Patient uses street drugs. Screenin:42 Abuse screen: Denies threats or abuse. Nutritional screening: No deficits noted. mt2 Tuberculosis screening: No symptoms or risk factors identified. Fall Risk Mental Status- Overestimates/Forgets Limitations (15 pts.). Assessment: 01:35 Reassessment: Patient and/or family updated on plan of care and expected duration. Pain mt2 level reassessed. Patient denies pain at this time. General: Appears comfortable, Behavior is calm. 02:19 Reassessment: Patient and/or family updated on plan of care and expected duration. Pain mt2 level reassessed. Patient states symptoms have improved. General: Behavior is calm. 03:00 Reassessment: Patient and/or family updated on plan of care and expected duration. Pain mt2 level reassessed. Patient denies pain at this time. General: Appears in no apparent distress. Behavior is calm, cooperative. 04:15 Reassessment: No changes from previously documented assessment. Patient and/or family mt2 updated on plan of care and expected duration. Pain level reassessed. General: Appears in no apparent distress. comfortable, Behavior is calm, cooperative. Pain: Unable to use pain scale. patient is sleeping. no s/s of pain or discomfort. 05:00 Reassessment: No changes from previously documented assessment. Patient and/or family mt2 updated on plan of care and expected duration. Pain level reassessed. General: Appears in no apparent distress. comfortable, Behavior is quiet. Pain: Denies pain. 06:34 Reassessment: PATIENT IS AWAKE AND ALERT ABLE TO ANSWER QUESTIONS APPRORIATELY. PT ABLE mt2 TO AMBULATE WITHOUT ASSISTANCE. MD NOTIFIED. Patient states feeling better. Patient states symptoms have improved. 06:50 Reassessment: Patient given discharge instructions; states may be unable to get a ride lp1 home, will attempt to find a ride. Vital Signs: 00:38 BP 141 / 82; Pulse 81; Resp 19; Pulse Ox 100% ; Weight 68.04 kg; Pain 0/10; mt2 01:35 BP 155 / 92; Pulse 86; Resp 18; Temp 98.4(O); Pulse Ox 98% ; Pain 0/10; mt2 02:19 BP 138 / 91; Pulse 119; Resp 19; Pulse Ox 100% on 1.5 lpm NC; mt2 03:00 BP 118 / 70; Pulse 91; Resp 16; Pulse Ox 100% on 1.5 lpm NC; Pain 0/10; mt2 04:17 BP 122 / 89; Pulse 97; Resp 16; Pulse Ox 100% on R/A; Pain 0/10; mt2 05:00 BP 123 / 72; Pulse 89; Resp 16; Temp 97.6(TE); Pulse Ox 96% on R/A; Pain 0/10; mt2 06:35 BP 127 / 71; Pulse 81; Resp 16; Pulse Ox 96% on R/A; mt2 ED Course: 00:38 Patient arrived in ED. mt2 00:38 Bonnie Bolaños, YULIANA is Primary Nurse. mt2 00:38 Kenneth Arellano MD is Attending Physician. pkl 00:41 Triage completed. mt2 00:41 Arm band placed on left wrist. mt2 00:42 Placed in gown. Bed in low position. Call light in reach. Side rails up X2. mt2 01:10 XRAY CXR (1 view) In Process Unspecified. EDMS 01:18 Urine Drug Screen Sent. ds4 01:25 Acetaminophen Sent. mt2 01:25 Basic Metabolic Panel Sent. mt2 01:25 CBC with Diff Sent. mt2 01:25 ETOH Level Sent. mt2 01:25 Hepatic Function Sent. mt2 01:25 PT-INR Sent. mt2 01:25 Ptt, Activated Sent. mt2 01:25 Salicylate Sent. mt2 01:25 No provider procedures requiring assistance completed. Initial lab(s) drawn, by nm, mt2 sent to lab. Inserted saline lock: 20 gauge in right antecubital area, using aseptic technique. Blood collected. 01:43 Urine Drug Screen Sent. ds4 01:43 PT-INR Sent. ds4 01:43 ETOH Level Sent. ds4 01:43 Hepatic Function Sent. ds4 01:43 Ptt, Activated Sent. ds4 01:43 Acetaminophen Sent. ds4 01:44 Basic Metabolic Panel Sent. ds4 01:44 Salicylate Sent. ds4 05:18 CBC with Automated Diff Sent. mt2 06:36 IV discontinued, intact, bleeding controlled, No redness/swelling at site. Pressure mt2 dressing applied. Administered Medications: 01:10 Drug: Geodon 20 mg Route: IM; Site: right deltoid; mt2 02:00 Follow up: Response: No adverse reaction; Anxiety decreased mt2 01:19 Drug: NS 0.9% 1000 ml Route: IV; Rate: 1000 ml; Site: right antecubital; mt2 02:00 Follow up: Response: No adverse reaction; IV Status: Completed infusion; IV Intake: mt2 1000ml 01:19 Drug: NS 0.9% 1000 ml Route: IV; Rate: 125 ml/hr; Site: right antecubital; mt2 05:01 Follow up: Response: No adverse reaction; IV Status: Completed infusion mt2 Intake: 02:00 IV: 1000ml; Total: 1000ml. mt2 Outcome: 06:35 Discharge ordered by . meli 06:36 Condition: stable mt2 06:50 Discharge instructions given to patient, Instructed on discharge instructions, lp1 Demonstrated understanding of instructions. 06:52 Discharged to home ambulatory. mt2 06:52 Patient left the ED. mt2 Signatures: Dispatcher [employer] EDMS Kenneth Arellano MD MD pkl Pena, Laura, RN RN lp1 Gab Lamas ds4 Bonnie Bolaños RN RN mt2
--- NOTE | 2019-12-01 06:36 | EDPHYS ---
Physician Documentation [facility] Name: Nestor Abbott Age: 34 yrs Sex: Male : 1985 Arrival Date: 12/01/2019 Time: 00:38 Bed 20 Private MD: ED Physician Kenneth Arellano HPI: 11/30 00:48 This 34 yrs old Male presents to ER via EMS with unknown complaint. pkl 00:48 The patient presents with confusion. Onset: The symptoms/episode began/occurred just pkl prior to arrival. Associated signs and symptoms: Pertinent positives: hallucinating. Patient brought in by ambulance. Said patient is homeless and is under the influence of amphetamine. Historical: - Allergies: 00:41 No Known Allergies; mt2 - Immunization history:: Adult Immunizations unknown. - Social history:: Smoking status: unknown Patient uses street drugs. ROS: 00:48 Eyes: Negative for injury, pain, redness, and discharge, ENT: Negative for injury, pkl pain, and discharge, Neck: Negative for injury, pain, and swelling, Cardiovascular: Negative for chest pain, palpitations, and edema, Respiratory: Negative for shortness of breath, cough, wheezing, and pleuritic chest pain, Abdomen/GI: Negative for abdominal pain, nausea, vomiting, diarrhea, and constipation, Back: Negative for injury and pain, : Negative for injury, bleeding, discharge, and swelling, MS/Extremity: Negative for injury and deformity, Skin: Negative for injury, rash, and discoloration. 00:48 Neuro: Positive for altered mental status, . 00:48 Psych: Positive for auditory hallucinations. Exam: 00:48 Head/Face: Normocephalic, atraumatic. Eyes: Pupils equal round and reactive to light, pkl extra-ocular motions intact. Lids and lashes normal. Conjunctiva and sclera are non-icteric and not injected. Cornea within normal limits. Periorbital areas with no swelling, redness, or edema. ENT: Nares patent. No nasal discharge, no septal abnormalities noted. Tympanic membranes are normal and external auditory canals are clear. Oropharynx with no redness, swelling, or masses, exudates, or evidence of obstruction, uvula midline. Mucous membranes moist. Neck: Trachea midline, no thyromegaly or masses palpated, and no cervical lymphadenopathy. Supple, full range of motion without nuchal rigidity, or vertebral point tenderness. No Meningismus. Chest/axilla: Normal chest wall appearance and motion. Nontender with no deformity. No lesions are appreciated. Cardiovascular: Regular rate and rhythm with a normal S1 and S2. No gallops, murmurs, or rubs. Normal PMI, no JVD. No pulse deficits. Respiratory: Lungs have equal breath sounds bilaterally, clear to auscultation and percussion. No rales, rhonchi or wheezes noted. No increased work of breathing, no retractions or nasal flaring. Abdomen/GI: Soft, non-tender, with normal bowel sounds. No distension or tympany. No guarding or rebound. No evidence of tenderness throughout. Back: No spinal tenderness. No costovertebral tenderness. Full range of motion. Skin: Warm, dry with normal turgor. Normal color with no rashes, no lesions, and no evidence of cellulitis. MS/ Extremity: Pulses equal, no cyanosis. Neurovascular intact. Full, normal range of motion. 00:48 Neuro: Mentation: confused, Cranial nerves: grossly normal, Motor: moves all fours. 00:48 Psych: Delusions/hallucinations are present and described as Said he ate body out of the trash can. Vital Signs: 00:38 BP 141 / 82; Pulse 81; Resp 19; Pulse Ox 100% ; Weight 68.04 kg; Pain 0/10; mt2 01:35 BP 155 / 92; Pulse 86; Resp 18; Temp 98.4(O); Pulse Ox 98% ; Pain 0/10; mt2 02:19 BP 138 / 91; Pulse 119; Resp 19; Pulse Ox 100% on 1.5 lpm NC; mt2 03:00 BP 118 / 70; Pulse 91; Resp 16; Pulse Ox 100% on 1.5 lpm NC; Pain 0/10; mt2 04:17 BP 122 / 89; Pulse 97; Resp 16; Pulse Ox 100% on R/A; Pain 0/10; mt2 05:00 BP 123 / 72; Pulse 89; Resp 16; Temp 97.6(TE); Pulse Ox 96% on R/A; Pain 0/10; mt2 06:35 BP 127 / 71; Pulse 81; Resp 16; Pulse Ox 96% on R/A; mt2 MDM: 00:38 Patient medically screened. pkl 05:22 Data reviewed: vital signs, nurses notes, lab test result(s), EKG, radiologic studies, pkl plain films. 06:33 ED course: Patient alert and ambulatory. pkl 11/30 00:44 Order name: Acetaminophen; Complete Time: 04:31 pkl 11/30 00:44 Order name: Basic Metabolic Panel; Complete Time: 04:31 pkl 11/30 00:44 Order name: CBC with Diff; Complete Time: 02:15 pkl 11/30 00:44 Order name: ETOH Level; Complete Time: 02:15 pkl 11/30 00:44 Order name: Hepatic Function; Complete Time: 04:31 pkl 11/30 00:44 Order name: PT-INR; Complete Time: 02:15 pkl 11/30 00:44 Order name: Ptt, Activated; Complete Time: 02:15 pkl 11/30 00:44 Order name: Salicylate; Complete Time: 04:31 pkl 11/30 00:44 Order name: Urine Drug Screen; Complete Time: 02:15 pkl 11/30 00:44 Order name: XRAY CXR (1 view) pkl 11/30 01:19 Order name: Urine Dipstick--Ancillary (enter results); Complete Time: 02:15 ds4 11/30 05:16 Order name: CBC with Diff mt2 11/30 05:17 Order name: CBC with Automated Diff; Complete Time: 05:54 EDMS 11/30 00:44 Order name: EKG; Complete Time: 00:44 pkl 11/30 00:44 Order name: EKG - Nurse/Tech; Complete Time: 00:48 pkl 11/30 00:44 Order name: IV Saline Lock; Complete Time: 01:25 pkl 11/30 00:44 Order name: Labs collected and sent; Complete Time: 01:25 pkl 11/30 00:44 Order name: Urine Dipstick-Ancillary (obtain specimen); Complete Time: 01:18 pkl Administered Medications: 01:10 Drug: Geodon 20 mg Route: IM; Site: right deltoid; mt2 02:00 Follow up: Response: No adverse reaction; Anxiety decreased mt2 01:19 Drug: NS 0.9% 1000 ml Route: IV; Rate: 1000 ml; Site: right antecubital; mt2 02:00 Follow up: Response: No adverse reaction; IV Status: Completed infusion; IV Intake: mt2 1000ml 01:19 Drug: NS 0.9% 1000 ml Route: IV; Rate: 125 ml/hr; Site: right antecubital; mt2 05:01 Follow up: Response: No adverse reaction; IV Status: Completed infusion mt2 Disposition: 12/01/19 06:35 Discharged to Home. Impression: Altered mental status. Substances abuse. - Condition is Stable. - Medication Reconciliation Form, Thank You Letter, Antibiotic Education, Prescription Opioid Use form. - Follow up: Private Physician; When: 2 - 3 days; Reason: Re-evaluation by your physician. - Problem is new. - Symptoms have improved. Signatures: Dispatcher [employer] EDMS Kenneth Arellano MD MD pkl Bonnie Bolaños RN RN mt2 Corrections: (The following items were deleted from the chart) 06:52 06:35 12/01/2019 06:35 Discharged to Home. Impression: Altered mental status. mt2 Substances abuse. Condition is Stable. Forms are Medication Reconciliation Form, Thank You Letter, Antibiotic Education, Prescription Opioid Use. Follow up: Private Physician; When: 2 - 3 days; Reason: Re-evaluation by your physician. Problem is new. Symptoms have improved. pkl
--- NOTE | 2019-12-01 08:22 | RAD REPORT ---
EXAM DESCRIPTION: RAD - Chest Single View - 12/01/2019 1:10 am CLINICAL HISTORY: altered mental status Chest pain. COMPARISON: No comparisons FINDINGS: Portable technique limits examination quality. The lungs are grossly clear. The heart is normal in size. No displaced fractures. IMPRESSION: No acute intrathoracic process suspected.
--- NOTE | 2019-12-01 12:32 | EKG ---
Test Date: 2019-12-01 Test Time: 00:37:01 Complaint Evaluation Officer: PEDRO MEASUREMENT RESULTS: Intervals: Rate: 94 NH: 170 QRSD: 86 QT: 374 QTc: 467 [place]ette: P: 61 NH: 170 QRS: 59 T: 50 INTERPRETIVE STATEMENTS: Sinus rhythm with marked sinus arrhythmia Otherwise normal ECG No previous ECG available for comparison Electronically Signed On 12-01-19 12:31:09 CDT by Tony Angela
[2019-12-01 18:57] VITALS: TEMP 97.6; O2SAT 96
[2019-12-01 18:58] VITALS: BP 127/71
== END 2019-12-01 06:52 | disposition home or self-care (01) ==
LOC: ER 00:35
DX: R41.82 Altered mental status, unspecified (principal)
CPT/HCPCS: 36415; 71045; 80048; 80076; 80307; 80320; 80329; 81003; 85025; 85610; 85730; 93005; 96360; 96361; 96372; 99284; J3486; J7030